=== PATIENT | male | born 1985 | race Caucasian/White ===

== ENCOUNTER → 2017-03-28 | Outpatient (CLI) | payer OTHER ==
[~2017-03-28] MED LIST: AMOXICILLIN500 M1 PO; CLEOCIN PO; CLINDAMYCIN HC300 MG PO; LEVAQUIN PO; LIDOCAINE HC20 MG/M1 PO; LORTAB ELIXIR15 ML PO; MEDROL4 MG/DOSE- PO; MOTRIN600 MG PO; MUCINEX D ER T1 EAC1 PO; NASONEX17 GM; NO MEDICATIONS; NORCO 7.5-3251 EACH PO; VICODIN 5/1 TAB 5/50 PO; VOLTAREN50 MG PO
--- NOTE | ~2017-03-28 | US48 ---
[facility]. [facility] A Service of [facility] [place] & [facility] RADIOLOGY TEXT RESULTS PATIENT: TERRY VOSS LOCATION: SG : 85 UNIT #: [id number] AGE: [address]: Coni Blood SEX: M ORDER DR: [id number] [address] [address] [id number] O MR#: [id number] Acc #: [id number] NAME: TERRY VOSS : 1985 SEX: M STUDY DATE/TIME: 03/28/2017 8:24 UNIT: [facility] ROOM: STUDY DESCRIPTION: US Extremity Anatomic Specific Attending Physician: Coni Blood A.P.R.N. Referring Physician: Coni Blood A.P.R.N. Ordering Physician: Coni Blood A.P.R.N. Primary Care Physician: Coni Blood A.P.R.N. MEDICAL IMAGING REPORT This report is preliminary unless electronic signature is present. EXAM Extremity ultrasound right groin 03/28/2017 HISTORY Right groin pain for 2 weeks. History of prior right inguinal hernia repair 2 years ago. FINDINGS Ultrasound of the site of patient's pain right inguinal crease revealed normal muscular and subcutaneous tissues. No cystic or solid mass lesions were identified. No residual or recurrent hernia is seen. If clinical concern persists for residual or recurrent hernia, consider correlation with CT scan of the pelvis. IMPRESSION Negative ultrasound of the right inguinal region. Dictated by... Gunnar Siddiqui M.D. THIS IS AN ELECTRONICALLY VERIFIED REPORT Gunnar Siddiqui M.D. at 03/29/2017 8:09 AM ROXANNE/janette TD: 03/28/2017 13:27 JOB #: [id number] MEDICAL IMAGING REPORT Page 1 of 1
== END | disposition home or self-care (01) ==
LOC: SGUS 03-20 09:00
DX: R10.31 Right lower quadrant pain (principal)
CPT/HCPCS: 76882